=== PATIENT | female | born 1995 | race Caucasian/White ===

== ENCOUNTER 2021-04-14 05:50 | Day surgery (SDC) | payer OTHER ==
[~2021-04-14] VITALS: Ht 160 cm; Wt 97.5 kg
[2021-04-14] MEDS ORDERED: ACETAMINOPHEN I.V. 1000 MG 100 ML IV ONE (07:18)
[2021-04-14 07:22] LABS: HCG,QUAL RESULT NEGATIVE (NEGATIVE)
[2021-04-14] MEDS ORDERED: SUGAMMADEX SODIUM 200 MG/2 ML VIAL IV ONE (07:32)
[2021-04-14] MEDS ORDERED: NS IRRIG SOLN 1000 ML IR ONE (07:32)
[2021-04-14] MEDS ORDERED: DESFLURANE 15 MIN GAS INH ONE (07:32)
[2021-04-14] MEDS ORDERED: MIDAZOLAM HCL 5 MG/5 ML VIAL IVP ONE (07:32)
[2021-04-14] MEDS ORDERED: LR 500 ML IV.SOLN IV ONE (07:32)
[2021-04-14] MEDS ORDERED: fentaNYL CITRATE/PF 100 MCG/2 ML AMP IVP ONE (07:32)
[2021-04-14] MEDS ORDERED: PROPOFOL 200MG/ 20ML VIAL (DIPRIVAN) IV ONE (07:32)
[2021-04-14] MEDS ORDERED: LIDOCAINE 2%, 20 ML MDV IM ONE (07:32)
[2021-04-14] MEDS ORDERED: DEXAMETHASONE SOD PHOSPHATE 4 MG/ML VIAL IVP ONE (07:32)
[2021-04-14] MEDS ORDERED: ONDANSETRON HCL 4 MG/2 ML VIAL IVP PRN (08:30)
[2021-04-14] MEDS ORDERED: LR 1,000 ML IV SCH (08:30)
[2021-04-14] MEDS ORDERED: METOCLOPRAMIDE HCL 10 MG/2 ML VIAL IVP PRN (08:30)
[2021-04-14] MEDS ORDERED: MEPERIDINE HCL/PF 25 MG/ML DISP.SYRIN IVP PRN (08:30)
[2021-04-14] MEDS ORDERED: HYDROmorphone 1 MG/ML INJ. CARTRIDGE IVP PRN ×2 (08:30)
[2021-04-14] MEDS ORDERED: MIDAZOLAM HCL 2 MG/2 ML VIAL (VERSED) IVP PRN (08:30)
[2021-04-14] MEDS ORDERED: ONDANSETRON HCL 4 MG/2 ML VIAL ONE (09:41)
[2021-04-14] MEDS ORDERED: METOCLOPRAMIDE HCL 10 MG/2 ML VIAL ONE (10:23)
[2021-04-14 14:13] VITALS: BP_SYST 122
== END 2021-04-14 11:45 | disposition home or self-care (01) ==
LOC: SDS 05:50
PROVIDERS: ATTEND Otolaryngology
DX: J35.01 Chronic tonsillitis (principal); E66.9 Obesity, unspecified; J45.20 Mild intermittent asthma, uncomplicated; J34.2 Deviated nasal septum; Z79.899 Other long term (current) drug therapy
CPT/HCPCS: 42826; 84703; 88304; 88305; C9399; J0131; J1100; J2001; J2250; J2405; J2704; J2765; J3010; J7120